=== PATIENT | male | born 1970 | race Caucasian/White ===

== ENCOUNTER → 2017-08-12 | Outpatient (CLI) | payer BC ==
[~2017-08-12] MED LIST: ACETAMINOPHEN325 M1 PO; ASA5UEC PO; CARVEDILOL12.5 MG PO; CARVEDILOL6.25 MG PO; COZAAR 50 MG TA50 M1 PO; DOXYCYCLINE 10100 MG PO; FUROSEMIDE 20 M20 MG PO; K-DUR10 MEQ PO; KEFLEX500 MG PO; LASIX 20 MG TAB20 MG PO; LISINOPRIL2.5 MG PO; NOHOMEMEDICATIONS; PREDNISONE 10 M10 M1 PO; PRINIVIL10 MG PO; VICODIN 5-5001 EACH PO
[2017-08-12 17:05] LABS: CALCIUM 8.6 mg/dL (8.5-10.1); CREATININE 1.7 mg/dL (0.6-1.3); POTASSIUM 4.3 mmol/L (3.5-5.1)
== END ==
LOC: M.LAB 16:48
PROVIDERS: Nurse Practitioner
DX: I11.0 Hypertensive heart disease with heart failure (principal); I50.21 Acute systolic (congestive) heart failure; I42.9 Cardiomyopathy, unspecified

== ENCOUNTER → 2018-02-10 | Outpatient (CLI) | payer BC | LOC: M.WC 09:00 | DX: T81.33XA Disruption of traumatic injury wound repair, initial encounter (principal); I11.0 Hypertensive heart disease with heart failure; I50.32 Chronic diastolic (congestive) heart failure; I25.2 Old myocardial infarction; G47.30 Sleep apnea, unspecified; J44.9 Chronic obstructive pulmonary disease, unspecified; Z87.891 Personal history of nicotine dependence; Y92.89 Other specified places as the place of occurrence of the external cause; Y84.8 Other medical procedures as the cause of abnormal reaction of the patient, or of later complication, without mention of misadventure at the time of the procedure ==

== ENCOUNTER → 2018-02-17 | Outpatient (CLI) | payer BC | LOC: M.WC 01:01 | DX: T81.33XD Disruption of traumatic injury wound repair, subsequent encounter (principal); S81.001D Unspecified open wound, right knee, subsequent encounter; S51.801D Unspecified open wound of right forearm, subsequent encounter; I11.0 Hypertensive heart disease with heart failure; I50.32 Chronic diastolic (congestive) heart failure; G47.30 Sleep apnea, unspecified; I25.2 Old myocardial infarction; J44.9 Chronic obstructive pulmonary disease, unspecified; Z87.891 Personal history of nicotine dependence; X58.XXXD Exposure to other specified factors, subsequent encounter; Y83.8 Other surgical procedures as the cause of abnormal reaction of the patient, or of later complication, without mention of misadventure at the time of the procedure ==

== ENCOUNTER → 2018-02-24 | Outpatient (CLI) | payer BC | LOC: M.WC 06:16 | DX: S81.001D Unspecified open wound, right knee, subsequent encounter (principal); S51.801D Unspecified open wound of right forearm, subsequent encounter; L03.116 Cellulitis of left lower limb; I11.0 Hypertensive heart disease with heart failure; I50.32 Chronic diastolic (congestive) heart failure; I25.2 Old myocardial infarction; J44.9 Chronic obstructive pulmonary disease, unspecified; G47.30 Sleep apnea, unspecified; Z87.891 Personal history of nicotine dependence; V21.5 Motorcycle passenger injured in collision with pedal cycle in traffic accident ==

== ENCOUNTER → 2018-02-27 | Outpatient (CLI) | payer BC ==
[2018-02-27 17:22] LABS: ALBUMIN 2.9 g/dL (3.4-5.0); CALCIUM 8.6 mg/dL (8.5-10.1); CREATININE 2.1 mg/dL (0.6-1.3); POTASSIUM 4.5 mmol/L (3.5-5.1); TOTAL BILIRUBIN 0.3 mg/dL (<0.1-1.0); TOTAL PROTEIN 6.7 g/dL (6.4-8.2)
[2018-02-28 05:15] LABS: GLYCOHEMOGLOBIN (HGB A1C) 5.2 % (4.8-5.6)
== END ==
LOC: M.MRI 12:38 → M.LAB 16:53
PROVIDERS: Family Medicine
DX: M25.572 Pain in left ankle and joints of left foot (principal); R79.89 Other specified abnormal findings of blood chemistry; I11.0 Hypertensive heart disease with heart failure; I50.9 Heart failure, unspecified; V29.9XXS Motorcycle rider (driver) (passenger) injured in unspecified traffic accident, sequela

== ENCOUNTER → 2018-03-03 | Outpatient (CLI) | payer BC | LOC: M.WC 02:00 | DX: T81.30XD Disruption of wound, unspecified, subsequent encounter (principal); I11.0 Hypertensive heart disease with heart failure; I50.32 Chronic diastolic (congestive) heart failure; I25.2 Old myocardial infarction; G47.30 Sleep apnea, unspecified; J44.9 Chronic obstructive pulmonary disease, unspecified; Z87.891 Personal history of nicotine dependence; V21.5 Motorcycle passenger injured in collision with pedal cycle in traffic accident; Y84.8 Other medical procedures as the cause of abnormal reaction of the patient, or of later complication, without mention of misadventure at the time of the procedure ==

== ENCOUNTER → 2018-03-04 | Outpatient (CLI) | payer BC | LOC: M.MRI 15:48 | DX: S76.011A Strain of muscle, fascia and tendon of right hip, initial encounter (principal); X58.XXXA Exposure to other specified factors, initial encounter; Y93.89 Activity, other specified; Y92.89 Other specified places as the place of occurrence of the external cause; Y99.8 Other external cause status ==

== ENCOUNTER → 2018-03-05 | Outpatient (CLI) | payer BC | LOC: M.MRI 15:53 | DX: S82.892A Other fracture of left lower leg, initial encounter for closed fracture (principal); X58.XXXA Exposure to other specified factors, initial encounter; Y93.89 Activity, other specified; Y92.89 Other specified places as the place of occurrence of the external cause; Y99.8 Other external cause status; I11.0 Hypertensive heart disease with heart failure; I50.9 Heart failure, unspecified ==

== ENCOUNTER → 2018-03-17 | Outpatient (CLI) | payer BC | LOC: M.WC 01:27 | DX: T81.33XD Disruption of traumatic injury wound repair, subsequent encounter (principal); I11.0 Hypertensive heart disease with heart failure; I50.32 Chronic diastolic (congestive) heart failure; I42.9 Cardiomyopathy, unspecified; I25.2 Old myocardial infarction; J44.9 Chronic obstructive pulmonary disease, unspecified; G47.30 Sleep apnea, unspecified; Z87.891 Personal history of nicotine dependence; V21.5 Motorcycle passenger injured in collision with pedal cycle in traffic accident ==

== ENCOUNTER → 2018-03-24 | Outpatient (CLI) | payer BC | LOC: M.WC 01:42 | DX: T81.33XD Disruption of traumatic injury wound repair, subsequent encounter (principal); I11.0 Hypertensive heart disease with heart failure; I50.32 Chronic diastolic (congestive) heart failure; J44.9 Chronic obstructive pulmonary disease, unspecified; I42.9 Cardiomyopathy, unspecified; G47.30 Sleep apnea, unspecified; I25.2 Old myocardial infarction; Z87.891 Personal history of nicotine dependence; V21.5 Motorcycle passenger injured in collision with pedal cycle in traffic accident ==

== ENCOUNTER → 2018-03-31 | Outpatient (CLI) | payer BC | LOC: M.WC 01:24 | DX: T81.33XD Disruption of traumatic injury wound repair, subsequent encounter (principal); I11.0 Hypertensive heart disease with heart failure; I50.32 Chronic diastolic (congestive) heart failure; I42.9 Cardiomyopathy, unspecified; I25.2 Old myocardial infarction; J44.9 Chronic obstructive pulmonary disease, unspecified; G47.30 Sleep apnea, unspecified; Z87.891 Personal history of nicotine dependence; Y83.8 Other surgical procedures as the cause of abnormal reaction of the patient, or of later complication, without mention of misadventure at the time of the procedure ==

== ENCOUNTER → 2018-04-14 | Outpatient (CLI) | payer BC | LOC: M.WC 04-07 10:00 | DX: T81.33XD Disruption of traumatic injury wound repair, subsequent encounter (principal); I11.0 Hypertensive heart disease with heart failure; I50.32 Chronic diastolic (congestive) heart failure; I42.9 Cardiomyopathy, unspecified; I25.2 Old myocardial infarction; J44.9 Chronic obstructive pulmonary disease, unspecified; G47.30 Sleep apnea, unspecified; Z87.891 Personal history of nicotine dependence ==

== ENCOUNTER → 2018-04-21 | Outpatient (CLI) | payer BC | LOC: M.WC 01:56 | DX: T81.33XD Disruption of traumatic injury wound repair, subsequent encounter (principal); I11.0 Hypertensive heart disease with heart failure; I50.32 Chronic diastolic (congestive) heart failure; I42.9 Cardiomyopathy, unspecified; I25.2 Old myocardial infarction; G47.30 Sleep apnea, unspecified; J44.9 Chronic obstructive pulmonary disease, unspecified; Z87.891 Personal history of nicotine dependence; Y83.8 Other surgical procedures as the cause of abnormal reaction of the patient, or of later complication, without mention of misadventure at the time of the procedure ==

== ENCOUNTER → 2018-08-25 | Outpatient (CLI) | payer BC ==
[2018-08-25 11:03] LABS: HEMATOCRIT 41.7 % (42.0-52.0)
[2018-08-25 11:15] LABS: ALBUMIN 2.5 g/dL (3.4-5.0); CALCIUM 8.7 mg/dL (8.5-10.1); CREATININE 2.3 mg/dL (0.6-1.3); PHOSPHORUS* 3.8 mg/dL (2.5-4.9); POTASSIUM 4.5 mmol/L (3.5-5.1); TOTAL BILIRUBIN 0.3 mg/dL (<0.1-1.0); TOTAL PROTEIN 6.3 g/dL (6.4-8.2)
[2018-08-25 11:21] LABS: CALCIUM 8.8 mg/dL (8.5-10.1); CREATININE 2.3 mg/dL (0.6-1.3); PHOSPHORUS* 3.9 mg/dL (2.5-4.9)
== END ==
LOC: M.LAB 10:38
PROVIDERS: Internal Medicine
DX: N17.9 Acute kidney failure, unspecified (principal)

== ENCOUNTER → 2018-10-16 | Outpatient (CLI) | payer BC ==
[2018-10-16 13:58] LABS: CALCIUM 9.2 mg/dL (8.5-10.1); CREATININE 2.4 mg/dL (0.6-1.3); POTASSIUM 4.8 mmol/L (3.5-5.1)
== END ==
LOC: M.LAB 13:28
PROVIDERS: Internal Medicine
DX: N18.3 Chronic kidney disease, stage 3 (moderate) (principal)

== ENCOUNTER → 2019-01-26 | Outpatient (CLI) | payer BC ==
[2019-01-26 13:29] LABS: URINE BILIRUBIN NEGATIVE (Negative); URINE BLOOD 1+ (Negative); URINE CLARITY CLEAR; URINE COLOR YELLOW; URINE GLUCOSE-RANDOM NEGATIVE (Negative); URINE KETONES NEGATIVE (Negative); URINE LEUKOCYTES-REFLEX NEGATIVE (Negative); URINE NITRITE-REFLEX NEGATIVE (Negative); URINE PROTEIN 3+ (Negative); URINE UROBILINOGEN 0.2 E.U./dl (0.2-1.0)
[2019-01-26 13:31] LABS: ABSOLUTE BASOPHILS 0.1 thou/uL (0.0-0.2); ABSOLUTE EOSINOPHILS 0.8 thou/uL (0.0-0.7); ABSOLUTE NEUTROPHILS 8.4 thou/uL (1.6-8.1); BASOPHILS 0.9 %; EOSINOPHILS 6.4 %; HEMATOCRIT 45.4 % (42.0-52.0); HEMOGLOBIN 14.9 gm/dL (14.0-18.0); LYMPHOCYTES 16.4 %; MCH 28.5 pg (26.0-34.0); MCHC 32.8 g/dL (28.0-37.0); MONOCYTES 7.9 %; MPV 9.8 fl. (7.2-11.1); NUCLEATED RBCS 0 /100WBC; PLATELET COUNT* 370 thou/uL (150-400); POLYS 68.4 %; RBC 5.21 mil/uL (4.50-6.00); RDW-CV 14.2 % (10.5-14.5); WBC 12.3 thou/uL (4.0-11.0)
[2019-01-26 13:38] LABS: BACTERIA-REFLEX 1-9 Few /HPF (None Seen); CASTS None Seen /LPF (None Seen); CRYSTALS None Seen /LPF (None Seen); MUCUS None Seen strn/LPF (None Seen); SQUAMOUS 4-10 Moderate /LPF (0-3); URINE RBC 3-10 Few /HPF (0-2); URINE WBC-REFLEX 0-5 Rare /HPF (0-5)
[2019-01-26 13:50] LABS: ALBUMIN 2.8 g/dL (3.4-5.0); CALCIUM 8.9 mg/dL (8.5-10.1); CREATININE 2.2 mg/dL (0.6-1.3); MAGNESIUM 1.8 mg/dL (1.8-2.4); PHOSPHORUS* 3.5 mg/dL (2.5-4.9); POTASSIUM 4.6 mmol/L (3.5-5.1); TOTAL BILIRUBIN 0.2 mg/dL (<0.1-1.0)
[2019-01-26 13:58] LABS: CALCIUM 9.1 mg/dL (8.5-10.1); CREATININE 2.3 mg/dL (0.6-1.3); PHOSPHORUS* 3.8 mg/dL (2.5-4.9)
[2019-01-27 07:08] LABS: HEPATITIS B SURFACE AG Negative (Negative)
== END ==
LOC: M.LAB 12:54
PROVIDERS: Internal Medicine
DX: I42.8 Other cardiomyopathies (principal); I13.0 Hypertensive heart and chronic kidney disease with heart failure and stage 1 through stage 4 chronic kidney disease, or unspecified chronic kidney disease; I50.22 Chronic systolic (congestive) heart failure; N18.3 Chronic kidney disease, stage 3 (moderate); R06.02 Shortness of breath; R05 Cough

== ENCOUNTER → 2019-03-10 | Outpatient (CLI) | payer BC ==
[2019-03-10 17:53] LABS: CALCIUM 8.7 mg/dL (8.5-10.1); CREATININE 2.4 mg/dL (0.6-1.3); POTASSIUM 4.9 mmol/L (3.5-5.1)
== END ==
LOC: M.LAB 17:11
PROVIDERS: Internal Medicine Cardiovascular Disease
DX: I42.8 Other cardiomyopathies (principal)

== ENCOUNTER → 2020-03-18 | Emergency (ER) | payer BC ==
[~2020-03-18] VITALS: Ht 190.5 cm; Wt 113.4 kg
[~2020-03-18] MED LIST changes: +BUMEX2 MG PO; +LIPITOR40 MG PO; +PROAIR HFA8.5 GM INH
[2020-03-18 10:32] VITALS: BP 151/92
== END ==
LOC: M.ERS 10:18
DX: R05 Cough (principal); Z20.828 Contact with and (suspected) exposure to other viral communicable diseases; R06.02 Shortness of breath; Z53.21 Procedure and treatment not carried out due to patient leaving prior to being seen by health care provider

== ENCOUNTER 2020-06-11 17:53 | Inpatient (IN) | payer BC ==
[~2020-06-11] VITALS: Ht 190.5 cm; Wt 115.9 kg
[2020-06-11 18:03] VITALS: BP 126/96
[2020-06-11 18:34] LABS: ABSOLUTE BASOPHILS 0.1 thou/uL (0.0-0.2); ABSOLUTE EOSINOPHILS 0.3 thou/uL (0.0-0.7); ABSOLUTE LYMPHOCYTES 0.6 thou/uL (0.8-5.3); ABSOLUTE MONOCYTES 0.8 thou/uL (0.0-1.2); ABSOLUTE NEUTROPHILS 8.2 thou/uL (1.6-8.1); BASOPHILS 0.8 %; EOSINOPHILS 2.6 %; HEMATOCRIT 29.2 % (42.0-52.0); HEMOGLOBIN 9.6 gm/dL (14.0-18.0); MCH 29.3 pg (26.0-34.0); MCHC 33.1 g/dL (28.0-37.0); MCV 88.5 fL (80.0-100.0); MONOCYTES 7.8 %; MPV 10.5 fl. (7.2-11.1); NUCLEATED RBCS 0 /100WBC; PLATELET COUNT* 188 thou/uL (150-400); POLYS 82.8 %; RDW-CV 17.2 % (10.5-14.5); WBC 9.8 thou/uL (4.0-11.0)
[2020-06-11] MEDS ORDERED: ALBUTEROL S5 MG/1 ML (18:43)
[2020-06-11] MEDS ORDERED: BUMEX2 MG PO (18:44)
[2020-06-11] MEDS ORDERED: COREG6.25 MG PO (18:44)
[2020-06-11] MEDS ORDERED: ASA81BEC PO (18:44)
[2020-06-11] MEDS ORDERED: PROAIR DIGIHAL90 MCG (18:44)
[2020-06-11] MEDS ORDERED: LIPITOR40 MG PO (18:44)
[2020-06-11] MEDS ORDERED: IPRATROPIU0.2 MG/1 M INH (18:45)
[2020-06-11] MEDS ORDERED: VITAMIN D21250 MC1 PO (18:45)
[2020-06-11] MEDS ORDERED: HYDRALAZINE 2525 MG PO (18:45)
[2020-06-11] MEDS ORDERED: NITROSTAT0.4 M1 (18:46)
[2020-06-11 18:51] LABS: ANION GAP 9 mmol/L (7-16); BUN 73 mg/dL (7-18); CALCIUM 8.3 mg/dL (8.5-10.1); CHLORIDE 95 mmol/L (98-107); CO2 31 mmol/L (21-32); CREATININE 4.6 mg/dL (0.6-1.3); GLUCOSE 110 mg/dL (70-99); POTASSIUM 3.8 mmol/L (3.5-5.1); SODIUM 135 mmol/L (136-145)
[2020-06-11 19:01] LABS: ALBUMIN 2.9 g/dL (3.4-5.0); ALKALINE PHOSPHATASE 125 U/L (46-116); LIPASE 129 U/L (73-393); MAGNESIUM 2.1 mg/dL (1.8-2.4); NT-PRO BRAIN NAT PEPTIDE > 35000 pg/mL (<300); SGOT 48 U/L (15-37); SGPT 68 U/L (30-65); TOTAL BILIRUBIN 0.9 mg/dL (<0.1-1.0); TOTAL PROTEIN 6.7 g/dL (6.4-8.2)
[2020-06-11 21:15] LABS: URINE BILIRUBIN NEGATIVE (Negative); URINE BLOOD NEGATIVE (Negative); URINE CLARITY CLEAR; URINE COLOR YELLOW; URINE GLUCOSE-RANDOM NEGATIVE (Negative); URINE KETONES NEGATIVE (Negative); URINE LEUKOCYTES-REFLEX NEGATIVE (Negative); URINE NITRITE-REFLEX NEGATIVE (Negative); URINE PROTEIN 3+ (Negative); URINE UROBILINOGEN 0.2 E.U./dl (0.2-1.0)
[2020-06-11 21:22] LABS: AMP/METHAMP POSITIVE (Negative); BARBITURATES Negative (Negative); BENZODIAZEPINES Negative (Negative); COCAINE Negative (Negative); METHADONE Negative (Negative); OPIATES POSITIVE (Negative); PCP Negative (Negative); THC Negative (Negative)
[2020-06-11 21:43] LABS: HYALINE CASTS 0-3 Few /LPF (None Seen); MUCUS 0-3 Light strn/LPF (None Seen); SQUAMOUS 0-3 Few /LPF (0-3)
[2020-06-11 21:44] LABS: BACTERIA-REFLEX None Seen /HPF (None Seen); CRYSTALS None Seen /LPF (None Seen); URINE RBC 0-2 Rare /HPF (0-2); URINE WBC-REFLEX 0-5 Rare /HPF (0-5)
[2020-06-11 22:55] VITALS: BP 146/103
[2020-06-11 23:30] VITALS: BP 118/86
[2020-06-12 04:00] VITALS: BP 117/85
--- NOTE | 2020-06-12 06:01 | NUR ---
PT CARE ASSUMED AT 1930. DENIES SOB. ALERT AND ORIENTED X4. CALL LIGHT WITHIN REACH AND BED IN LOW POSITION. HOURLY ROUNDING DONE FOR PT SAFETY.
[2020-06-12 08:00] VITALS: BP 121/94
[2020-06-12 10:21] LABS: CALCIUM 8.7 mg/dL (8.5-10.1); CREATININE 4.8 mg/dL (0.6-1.3); MAGNESIUM 2.4 mg/dL (1.8-2.4); PHOSPHORUS* 6.2 mg/dL (2.5-4.9)
--- NOTE | 2020-06-12 12:48 | EKG ---
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 : 1970 Requested By: Stevie Urbina Order Number: [id number] MD: Nick Anthony Measurements Intervals [place] Rate: 89 P: 80 [place]: 163 QRS: 65 QRSD: 106 T: 185 QT: 423 QTc: 515 Interpretive Statements Sinus rhythm Probable left atrial enlargement Abnormal T, consider ischemia, lateral leads Prolonged QT interval Compared to ECG 12/23/2012 13:48:36 T-wave abnormality now present Possible ischemia now present Prolonged QT interval now present Sinus tachycardia no longer present ST (T wave) deviation no longer present Electronically Signed On 06-12-2020 12:48:25 [employer] GUIDE by Nick Anthony [email or web address] <ELECTRONICALLY SIGNED> By: Nick Anthony MD, FACC 06/12/20 1248 [id number] Nick Anthony MD, FAC /EPI
[2020-06-12 13:26] VITALS: BP 147/81
[2020-06-12 16:30] VITALS: BP 122/88
--- NOTE | 2020-06-12 18:12 | NUR ---
PATINET RESTING IN BED. UYP AD JUAN ANTONIO IN ROOM. C/O NECK PAIN, HEAT AND BENGAY IS HELPFUL. 1L PER NASAL CANULA AT HS. AWAITING TESTING. PACER BUT UNDERLYING SR. REPORTED SHINGLES ON PENIS AND REPORTED TO BE DRIED AND CRUSTED. HOURLY ROUNDING COMPLETD FOR PATINET SAFETY
[2020-06-12 20:18] VITALS: BP 114/89
[2020-06-13] VITALS: BP 120/84
[2020-06-13 03:06] LABS: HIV-1/HIV-2 ANTIBODY Non Reactive (Non Reactive)
[2020-06-13 04:00] VITALS: BP 125/90
[2020-06-13 04:56] LABS: ABSOLUTE BASOPHILS 0.1 thou/uL (0.0-0.2); ABSOLUTE EOSINOPHILS 0.3 thou/uL (0.0-0.7); ABSOLUTE LYMPHOCYTES 1.2 thou/uL (0.8-5.3); ABSOLUTE MONOCYTES 1.1 thou/uL (0.0-1.2); ABSOLUTE NEUTROPHILS 6.8 thou/uL (1.6-8.1); BASOPHILS 0.6 %; HEMATOCRIT 31.3 % (42.0-52.0); HEMOGLOBIN 10.2 gm/dL (14.0-18.0); LYMPHOCYTES 12.6 %; MCH 28.5 pg (26.0-34.0); MCHC 32.5 g/dL (28.0-37.0); MCV 87.8 fL (80.0-100.0); MONOCYTES 11.7 %; NUCLEATED RBCS 0 /100WBC; PLATELET COUNT* 212 thou/uL (150-400); POLYS 72.1 %; RBC 3.56 mil/uL (4.50-6.00); RDW-CV 17.6 % (10.5-14.5); WBC 9.4 thou/uL (4.0-11.0)
[2020-06-13 05:16] LABS: % SATURATION 13 % (20-39); IRON 40 ug/dL (50-175)
[2020-06-13 05:20] LABS: CALCIUM 8.4 mg/dL (8.5-10.1); CREATININE 4.7 mg/dL (0.6-1.3); PHOSPHORUS* 5.6 mg/dL (2.5-4.9)
[2020-06-13 05:27] LABS: CALCIUM 8.5 mg/dL (8.5-10.1); CREATININE 4.6 mg/dL (0.6-1.3); PHOSPHORUS* 5.4 mg/dL (2.5-4.9); POTASSIUM 3.4 mmol/L (3.5-5.1)
--- NOTE | 2020-06-13 07:01 | NUR ---
ASSUMED CARE OF PATIENT AT 1930. PATIENT ON FLUID RESTRICTION AND IS NON-COMPLIANT. RE-EDUCATED PATIENT ABOUT FLUID RESTRICTION AND HE INDICATES UNDERSTANDIING.
[2020-06-13 08:00] VITALS: BP 125/94
[2020-06-13] MEDS ORDERED: BUMEX2 MG PO (09:19)
[2020-06-13] MEDS ORDERED: RENVELA800 MG PO (09:19)
--- NOTE | 2020-06-13 09:37 | NUR ---
RECIEVED REPORT AROUND 0715. ASSUMED CARE. IV INTACT. VS AND ASSESSMENT CHARTED. HEART MONITOR ATTACHED AT SR. PT UP ADLIB. PT REFUSING ANY TYPE OF PROCEDURE LIKE CT, CHEST X-RAY. DR SEALS TOLD. PT TO BE DISCHARGED THIS SHIFT. MEDS GIVEN PER SEP. PT STATED "NO" TO ANY PAIN. PT LYING IN BED THIS AM. DID GET TO GO TO BATHROOM. PT ON 2L NC. DID STATE HE HAS O2 AT HOME. REST AND EXERCISE TO BE DONE BEFORE DISCHARGE. CALL LIGHT WITHIN REACH. WILL CONTINUE TO MONITOR.
--- NOTE | 2020-06-13 10:09 | NUR ---
CM SPOKE TO THE PT O DISCUSS CM ASSESSMENT. PT A&O, INDEPENDENT WITH ADL'S AND WORKS OUTSIDE THE HOME. PT USES HOME O2 AT [facility] AND INFORMS THAT HE HAS THE INOGEN. PT HAS 0 HX OF HH OR SNF. CM INFORMED BY PHYSICIAN OF PLAN TO D/C PT HOME TODAY. HOWEVER PT WILL NEED TO HAVE REST AND EXERCISE TESTING COMPLETED TO DETERMINE IF PT WILL NEED O2 DURING THE DAY. CM WILL REMAIN ADN FILLOW TO ASSIST WITH D/C PLANNING NEEDS AND POSSIBLE 02 AT D/C.
[2020-06-13 10:55] LABS: SMEAR FOR EOSINOPHILS No Eosinophils Seen
[2020-06-13 12:03] VITALS: BP 141/100
[2020-06-13 12:07] VITALS: BP 141/100
--- NOTE | 2020-06-13 12:44 | NUR ---
RECIEVED DISCHARGE ORDERS. PT REFUSED CT AND CHEST X-RAY. STATED "I HAVE MY OWN COSTUMER ASSISTANT AT " "I ONLY CAME HERE BECAUSE I THOUGHT I WAS HAVING A HEART ATTACK." DISCHARGE PACKET GIVEN TO PT. TOLD PT TO SET UP APPOINTMENT FOR OWN CHEESE GRADER. PUT NAME OF COSTUMER ASSISTANT AND CHEESE GRADER IN PAPER DISCHARGE PACKET. IV TAKEN OUT. HEART MONITOR TAKEN OFF. PT LEFT UNIT AT 1223 VIA WHEELCHAIR WITH ALL BELONGINGS AND NURSING STAFF. PT HAD APPOINTMENT ALL READY SET UP WITH OWN COSTUMER ASSISTANT ON 06/17/20 AT 1300.
--- NOTE | 2020-06-13 15:04 | NUR ---
The patient has a follow up appointment scheduled with Dr. Mooney at on 06/17/20 at 1300. This information was hand written on his discharge papers by the staff nurse.
--- NOTE | 2020-06-14 07:50 | CON ---
[address] [address] CONSULTATION Name: STEPHANIE MARCANO Room: [address] IN M.R.#: [id number] Admission: 06/11/20 Attend Phys: Alejandra De Jesus MD Discharge: 06/13/20 Date of : 72 Report #: [id number] THIS REPORT FOR: //name// cc: Physician not on staff Physician not on staff ~ CARDIOLOGY CONSULTATION INDICATION: Acute on chronic combined heart failure. HISTORY OF PRESENT ILLNESS: The patient is a 50-year-old gentleman with a long history of nonischemic cardiomyopathy. The patient presents to the Emergency Room with complaints of left arm numbness and vomiting. The patient's troponin is minimally elevated. A 12-lead EKG shows sinus rhythm with nonspecific intraventricular conduction delay and T-wave inversion. At the time of my interview, the patient is mostly concerned about neck pain. He denies chest pain. He is chronically short of breath. The patient states he has had volume retention for the past 2 weeks at least. Of note, the patient also has acute renal failure and is being followed by Nephrology. Cardiac catheterization in 2012 showed normal coronary arteries. PAST MEDICAL HISTORY: 1. Combined heart failure, chronic. 2. Hypertension. 3. Left shoulder arthroscopy. 4. Right knee arthroscopy. 5. Chronic obstructive pulmonary disease. ALLERGIES: None documented. HOME MEDICATIONS: Albuterol inhaler, enteric coated aspirin 81 mg daily, atorvastatin 40 mg daily, Bumex 2 mg p.o. daily, carvedilol 6.25 mg b.i.d., vitamin D 1250 mcg daily, hydralazine 25 mg t.i.d., ipratropium inhaler q.6 hours p.r.n., Nitrostat sublingual p.r.n. REVIEW OF SYSTEMS: A 14-point review of systems is positive for generalized weakness. He has orthopnea and paroxysmal nocturnal dyspnea as well as shortness of breath at rest. He reports left arm paresthesias. He reports lower extremity swelling for the past 2 weeks. Otherwise, 14-point review of systems was unremarkable. FAMILY HISTORY: Noncontributory. SOCIAL HISTORY: The patient has a history of illicit drug use. PHYSICAL EXAMINATION: [place] [address] CONSULTATION Name: STEPHANIE MARCANO Room: [address]#: [id number] Admission: 06/11/20 Attend Phys: Alejandra De Jesus MD Discharge: 06/13/20 Date of : 72 Report #: [id number] VITAL SIGNS: Blood pressure 121/94, pulse 95 and regular. GENERAL: This is an anxious gentleman who appears to be in moderate distress with his neck. HEENT: Head is normocephalic, atraumatic. NECK: Shows no obvious jugular venous distention. CHEST: Bilateral rales. CARDIAC: Regular rhythm without gallop or murmur. ABDOMEN: Distended, soft, nontender. EXTREMITIES: 1+ edema to above the knees bilaterally. LABORATORY DATA: Reviewed. Sodium 135, potassium 4.0, chloride 95, bicarbonate 31, BUN 74, creatinine 4.8, serum glucose 90, AST 48, lipase 129, total bilirubin 0.9, calcium 8.7, phosphorus 6.2, magnesium 2.4, uric acid 5.6, alkaline phosphatase 125, ALT 68, total protein 6.7, albumin 2.9, EGFR 13, total LDH 218, total CPK 76, troponin 0.12. NT-proBNP greater than 35,000. Coags within normal limits. White blood cell count 9.8, hemoglobin 9.6, and platelet count 188,000. Chest x-ray shows pulmonary vascular congestion. ICD is in place. IMPRESSION AND RECOMMENDATIONS: 1. Acute on chronic combined heart failure. The patient is grossly volume overloaded. We will give a single bolus of IV Lasix to see if we can prompt any diuresis. The patient has been written for his home medications as outlined above. We will follow I's and O's and adjust diuretics as tolerated. 2. Status post ICD placement for primary prevention. 3. Acute on chronic renal failure, Nephrology following. 4. Hypertension. Blood pressure adequately controlled at present. 5. Elevated troponin due to cardiac strain consistent with type 2 myocardial infarction. 6. Anemia due to chronic renal insufficiency. 7. Hyperlipidemia. Continue atorvastatin. <ELECTRONICALLY SIGNED> By: Nick Anthony MD, FACC 06/14/20 0750 1235 [id number] Anthony MD, FACC /nt
[2020-06-14 09:08] LABS: HEPATITIS B SURFACE AG Negative (Negative)
== END 2020-06-13 12:16 | disposition home or self-care (01) | DRG 280 ==
LOC: M.ERS 17:53 → M.2W 21:20 → M.TBA-ER 21:20 → M.2W 22:11
PROVIDERS: Emergency Medicine; Emergency Medicine Emergency Medical Services; Internal Medicine; Internal Medicine Nephrology; ADMIT Internal Medicine; ATTEND Internal Medicine
DX: I13.2 Hypertensive heart and chronic kidney disease with heart failure and with stage 5 chronic kidney disease, or end stage renal disease (principal); I21.A1 Myocardial infarction type 2; I50.23 Acute on chronic systolic (congestive) heart failure; N18.5 Chronic kidney disease, stage 5; N17.9 Acute kidney failure, unspecified; E44.0 Moderate protein-calorie malnutrition; J96.11 Chronic respiratory failure with hypoxia; I24.9 Acute ischemic heart disease, unspecified; J44.9 Chronic obstructive pulmonary disease, unspecified; D64.9 Anemia, unspecified; D63.8 Anemia in other chronic diseases classified elsewhere; E78.5 Hyperlipidemia, unspecified; I25.10 Atherosclerotic heart disease of native coronary artery without angina pectoris; F19.10 Other psychoactive substance abuse, uncomplicated; Z20.828 Contact with and (suspected) exposure to other viral communicable diseases; Z95.0 Presence of cardiac pacemaker; I25.2 Old myocardial infarction; Z79.82 Long term (current) use of aspirin; Z79.899 Other long term (current) drug therapy; Z87.891 Personal history of nicotine dependence; Z68.31 Body mass index [BMI] 31.0-31.9, adult

== ENCOUNTER 2020-06-30 20:39 | Emergency (ER) | payer BC ==
[~2020-06-30] VITALS: Ht 190.5 cm; Wt 102.5 kg
[~2020-06-30 20:39] MED LIST changes: +ALBUTEROL S5 MG/1 ML; +ASA81BEC PO; +COREG6.25 MG PO; +HYDRALAZINE 2525 MG PO; +IPRATROPIU0.2 MG/1 M INH; +NITROSTAT0.4 M1; +PROAIR DIGIHAL90 MCG; +RENVELA800 MG PO; +VITAMIN D21250 MC1 PO
== END 2020-06-30 20:55 | disposition left against medical advice (07) ==
LOC: M.ERS 20:39
DX: Z53.21 Procedure and treatment not carried out due to patient leaving prior to being seen by health care provider (principal)